=== PATIENT | female | born 1975 | race Hispanic/Latino ===

== ENCOUNTER 2017-01-20 11:49 | Emergency (ER) | payer OTHER ==
[2017-01-20 12:12] VITALS: BP 118/75; PULSE 87; RESP 18; TEMP 98; O2SAT 97
--- NOTE | 2017-01-20 12:21 | ED PDOC ---
Lower Extremity Pain/Injury Time Seen by Provider: 01/20/17 12:00 Chief Complaint (Nursing): Lower Extremity Problem/Injury Chief Complaint (Provider): Right foot injury History Per: Patient History/Exam Limitations: no limitations Onset/Duration Of Symptoms: Days (Last night) Current Symptoms Are (Timing): Still Present Additional Complaint(s): Patient is a 41 y/o female who presents to the ED complaining of pain in her right foot. Patient states she tripped while going up the stairs last night and injured her right foot. She also states the pain became worse this morning and that she took Advil prior to arrival. Patient reports that when she was 15 y/o she sustained a fracture/dislocation to the right pinky toe. She denies any numbness, tingling, ankle pain, head injury, or other injury. PCP: Dr. Jacklyn Virgen Past Medical History Reviewed: Historical Data, Nursing Documentation, Vital Signs Vital Signs: Last Vital Signs Temp 98.0 F 01/20/17 12:08 Pulse 87 01/20/17 12:08 Resp 18 01/20/17 12:08 BP 118/75 01/20/17 12:08 Pulse Ox 97 01/20/17 12:08 - Medical History PMH: No Chronic Diseases - Surgical History Surgical History: No Surg Hx - Family History Family History: States: No Known Family Hx - Social History Current smoker - smoking cessation education provided: No Ex-Smoker (has not smoked in the last 12 months): No Alcohol: Social Drugs: Denies - Allergies Allergies/Adverse Reactions: Allergies Allergy/AdvReac Type Severity Reaction Status Date / Time clarithromycin [From Biaxin] Allergy URTICARIA Verified 01/20/17 12:16 Penicillins Allergy URTICARIA Verified 01/20/17 12:16 Review of Systems ROS Statement: Except As Marked, All Systems Reviewed And Found Negative Musculoskeletal: Positive for: Foot Pain (Right foot), Other (no ankle pain, no head injury) Neurological: Positive for: Other (No tingling). Negative for: Numbness Physical Exam - Reviewed Nursing Documentation Reviewed: Yes Vital Signs Reviewed: Yes - Physical Exam Appears: Positive for: No Acute Distress Head Exam: Positive for: ATRAUMATIC, NORMOCEPHALIC Pulses-Dorsalis Pedis (L): 2+ Pulses-Dorsalis Pedis (R): 2+ Extremity: Positive for: Tenderness (Right foot - minimal tenderness on dorsal medial side of foot), Capillary Refill (2 seconds). Negative for: Deformity ( Right foot), Swelling (Right foot) Neurologic/Psych: Positive for: Alert, Oriented (x3). Negative for: Motor/ Sensory Deficits - ECG O2 Sat by Pulse Oximetry: 97 (RA) Pulse Ox Interpretation: Normal - Radiology X-Ray: Interpreted by Me (Foot x-ray) X-Ray Interpretation: No Acute Disease - Progress ED Course And Treament: Foot wrapped in Mari dressing. Crutches along with crutch walking instructions provided. Medical Decision Making Medical Decision Making: Time: 12:16 Initial Plan: --Foot Right 3 Views X-Ray Scribe Attestation: Documented by Torsten Liu, acting as a scribe for [place] PA-C Provider Scribe Attestation: All medical record entries made by the Scribe were at my direction and personally dictated by me. I have reviewed the chart and agree that the record accurately reflects my personal performance of the history, physical exam, medical decision making, and the department course for this patient. I have also personally directed, reviewed, and agree with the discharge instructions and disposition. Disposition - Clinical Impression Clinical Impression: Foot injury - Disposition Referrals: Jacky Pagan MD [Staff Provider] - [employer] [facility] [Outside] Disposition: Routine/Home Disposition Time: 12:40 Condition: STABLE Instructions: Crutch Instructions (ED), Foot Sprain (ED), RICE Therapy (ED) Forms: [employer] (Latvian) Print Language: LIBYAN
--- NOTE | 2017-01-20 15:01 | RAD ---
PROCEDURE: Right Foot Radiographs. HISTORY: Trauma COMPARISON: None. FINDINGS: BONES: No evidence of acute displaced fracture nor dislocation. The osseous structures appear intact. . Small plantar and very tiny posterior calcaneal enthesophyte formation. JOINTS: Minor degenerative changes right 1st MTP joint SOFT TISSUES: Normal. OTHER FINDINGS: None. IMPRESSION: No evidence of acute displaced fracture nor dislocation.
== END 2017-01-20 13:17 | disposition home or self-care (01) ==
LOC: H.ER 11:49
DX: S99.921A Unspecified injury of right foot, initial encounter (principal); W19.XXXA Unspecified fall, initial encounter; Y92.89 Other specified places as the place of occurrence of the external cause; Z88.0 Allergy status to penicillin